=== PATIENT | male | born 1990 | race African-American/Black ===

== ENCOUNTER 2019-10-16 20:11 | Emergency (ER) | payer BC ==
[~2019-10-16] VITALS: Ht 185.4 cm; Wt 159.7 kg
[2019-10-16 20:14] VITALS: BP 144/93
--- NOTE | 2019-10-16 20:25 | NUR ---
PT AMBULATED TO BED #4. NEGATIVE COVID-19 SCREENING. PT WEARING MASK
[2019-10-16] MEDS ORDERED: NACL 0.9% 500 ML IV ONE ×2 (20:31→20:47)
--- NOTE | 2019-10-16 20:36 | NUR ---
Dr. Ramos examining patient.
[2019-10-16 20:48] LABS: BASOPHILS # (AUTO) 0.1 K/uL (0.00-0.22); BASOPHILS % (AUTO) 1.4 % (0.0-2.0); EOSINOPHILS # (AUTO) 0.1 K/uL (0-0.4); EOSINOPHILS % (AUTO) 1.4 % (0.0-4.0); HEMATOCRIT 44.2 % (36-52); HEMOGLOBIN 14.2 g/dL (12.0-18.0); LYMPHOCYTES # (AUTO) 3.2 K/uL (2.0-11.5); LYMPHOCYTES % (AUTO) 35.2 % (20.5-51.1); MEAN CORPUSCULAR HEMOGLOBIN 23 pg (27-31); MEAN CORPUSCULAR HGB CONC 32 g/dL (33-37); MEAN CORPUSCULAR VOLUME 70.3 fL (80-94); MONOCYTES # (AUTO) 0.5 K/uL (0.8-1.0); PLATELET COUNT (AUTO) 365 K/uL (140-450); RED BLOOD CELL COUNT(AUTO) 6.28 MIL/uL (4.20-6.10); RED CELL DISTRIBUTION WIDTH 14.7 % (11.6-13.7)
[2019-10-16 20:49] LABS: ACETONE, SERUM NEGATIVE (NEGATIVE)
--- NOTE | 2019-10-16 20:54 | NUR ---
PT CAME IN TODAY WITH C/O POLYURIA AND POLYDIPSIA X 2 WEEKS. PT BOUGHT AN ACCU-CHECK MACHINE AND TESTED HIS BS THIS EVEVNING X 2, FIRST WAS 459 AND SECOND READING WAS HIGH. NO PRIOR HX OF DIABETES. DENIES N/V/D. BED IN LOWEST POSITION SIDE RAIL UP X 1. NKA NO PRIOR HX NO MEDS
[2019-10-16 21:02] LABS: ALBUMIN 4.3 g/dL (3.4-5.0); ANION GAP 13.3 (8-16); ASPARTATE AMINOTRANSFERASE 11 U/L (15-37); CARBON DIOXIDE 30.2 mmol/L (21-32); CHLORIDE 93 mmol/L (98-107); CREATININE 1.7 mg/dL (0.6-1.3); GFR ARICAN-AMERICAN 62 mL/min (>90); POTASSIUM 4.5 mmol/L (3.5-5.1); SODIUM SERUM 132 mmol/L (136-145); TOTAL BILIRUBIN 0.3 mg/dL (0.0-1.0); UREA NITROGEN, BLOOD 19 mg/dL (7-18)
[2019-10-16 21:04] LABS: GLUCOSE 576 mg/dL (74-106)
[2019-10-16] MEDS ORDERED: INSULIN REGULAR, HUMAN 100 UNIT/ML VIAL IVP ONE ×2 (21:05→21:55)
--- NOTE | 2019-10-16 21:47 | NUR ---
ACCU-CHECK 449, MD MILLER NOTIFIED
[2019-10-16] MEDS ORDERED: NACL 0.9% 1,000 ML IV ONE (22:40)
[2019-10-16] MEDS ORDERED: INSULIN REGULAR, HUMAN 100 UNIT/ML VIAL SUBQ ONE (22:40)
[2019-10-16 23:33] VITALS: BP 142/93
--- NOTE | 2019-10-16 23:34 | NUR ---
Note monemaryann in EDM - 10/16/19 at 2358 by [email or web address] Patient discharged with v/s stable. Written and verbal after care instructions given and explained. Patient alert, oriented and verbalized understanding of instructions. Ambulatory with steady gait. All questions addressed prior to discharge. ID band removed. Patient advised to follow up with PMD. Rx of TRANADOL AND XANAX given. Patient educated on indication of medication including possible reaction and side effects. Opportunity to ask questions provided and answered.
--- NOTE | 2019-10-16 23:59 | NUR ---
Patient discharged with v/s stable. Written and verbal after care instructions given and explained. Patient alert, oriented and verbalized understanding of instructions. Ambulatory with steady gait. All questions addressed prior to discharge. ID band removed. Patient advised to follow up with PMD. Rx of METFORMIN given. Patient educated on indication of medication including possible reaction and side effects. Opportunity to ask questions provided and answered.
== END 2019-10-16 23:59 | disposition home or self-care (01) ==
LOC: MED 20:11
DX: E11.9 Type 2 diabetes mellitus without complications (principal)
CPT/HCPCS: 36415; 80053; 82009; 82948; 85025; 96374; 96376; 99284; J1815; J7030

== ENCOUNTER 2021-12-12 16:47 | Emergency (ER) | payer BC, OTHER ==
[~2021-12-12] VITALS: Ht 185.4 cm; Wt 161.0 kg
[2021-12-12 16:55] VITALS: BP 180/103
[2021-12-12 18:54] LABS: BASOPHILS # (AUTO) 0.1 K/uL (0.00-0.22); BASOPHILS % (AUTO) 0.7 % (0.0-2.0); EOSINOPHILS # (AUTO) 0.2 K/uL (0-0.4); EOSINOPHILS % (AUTO) 2.4 % (0.0-4.0); HEMATOCRIT 42.2 % (36-52); HEMOGLOBIN 13.3 g/dL (12.0-18.0); LYMPHOCYTES % (AUTO) 37.9 % (20.5-51.1); MEAN CORPUSCULAR HEMOGLOBIN 22 pg (27-31); MEAN CORPUSCULAR HGB CONC 32 g/dL (33-37); MEAN CORPUSCULAR VOLUME 69.2 fL (80-94); MONOCYTES # (AUTO) 0.7 K/uL (0.8-1.0); MONOCYTES % (AUTO) 8.9 % (1.7-9.3); NEUTROPHILS # (AUTO) 3.9 K/uL (1.8-7.7); NEUTROPHILS % (AUTO) 50.1 % (42.2-75.2); PLATELET COUNT (AUTO) 381 K/uL (140-450); WHITE BLOOD COUNT (AUTO) 7.8 K/uL (4.8-10.8)
--- NOTE | 2021-12-12 19:13 | NUR ---
31 y/o male, pt states yesterday he had a spike in his bs, has been in the 400s. pt states before he left today, glucose was 430. triage glucose was 248. pt states he has also had a mcgregor 9/10 at this time. denies nausea, vomiting, diarrhea. skin is pink/warm/dry. a&o x4 with even and steady gait. lungs clear bl, heart rate even and regular. pt denies any fever, cp, sob, or cough at this time. pt states pain is 7/10 at this time. ermd made aware of pt. pmh: dm2, asthma nka med: metformin
[2021-12-12 19:25] LABS: ALBUMIN 4.1 g/dL (3.4-5.0); ANION GAP 10.4 (8-16); ASPARTATE AMINOTRANSFERASE 24 U/L (15-37); CARBON DIOXIDE 30.1 mmol/L (21-32); CHLORIDE 101 mmol/L (98-107); CREATININE 1.3 mg/dL (0.6-1.3); GFR ARICAN-AMERICAN 84 mL/min (>90); GLUCOSE 198 mg/dL (74-106); POTASSIUM 4.5 mmol/L (3.5-5.1); SODIUM SERUM 137 mmol/L (136-145); TOTAL BILIRUBIN 0.6 mg/dL (0.0-1.0); UREA NITROGEN, BLOOD 12 mg/dL (7-18)
[2021-12-12 19:26] LABS: ACETONE, SERUM NEGATIVE (NEGATIVE)
--- NOTE | 2021-12-12 20:34 | NUR ---
Patient discharged with v/s stable. Written and verbal after care instructions given and explained. Patient verbalized understanding. Ambulatory with steady gait. All questions addressed prior to discharge. Advised to follow up with PMD.
== END 2021-12-12 20:25 | disposition home or self-care (01) ==
LOC: MED 16:47
DX: E11.65 Type 2 diabetes mellitus with hyperglycemia (principal)
CPT/HCPCS: 36415; 80053; 82009; 85025; 99283